=== PATIENT | female | born 1990 | race Caucasian/White ===

== ENCOUNTER 2017-08-18 15:58 | Inpatient (IN) | payer OTHER ==
[2017-08-18] MEDS ORDERED: OLIVE OIL 118 ML BTL MISC PRN (16:18)
[2017-08-18] MEDS ORDERED: OXYTOCIN 20 UNIT in LR 1,000 ML IV PRN (16:18)
[2017-08-18] MEDS ORDERED: EPSOM SALT 454 GM TP PRN (16:18)
[2017-08-18] MEDS ORDERED: TERBUTALINE SULFATE 1 MG/ML VIAL IV PRN (16:18)
[2017-08-18 17:49] LABS: % IMMATURE GRANULYOCYTES 0.5 % (0.0-1.1); ABSOLUTE IMMATURE GRANULOCYTES 0.04 10^3/uL (0.00-0.10); ADD DIFF? NO; ADD MORPH? NO; ADD SCAN? YES; ATYPICAL LYMPHOCYTE FLAG 0 (0-99); FRAGMENT RBC FLAG 0 (0-99); HEMATOCRIT 36.6 % (38.0-47.0); HEMOGLOBIN 12.9 g/dL (12.6-16.3); LEFT SHIFT FLG 0 (0-99); LIPEMIA HEMOLYSIS FLAG 90 (0-99); MEAN CELL HEMOGLOBIN 31.9 pg (27.9-34.1); MEAN CELL HEMOGLOBIN CONCENTR. 35.2 g/dL (32.4-36.7); MEAN CELL VOLUME 90.6 fL (81.5-99.8); MEAN PLATELET VOLUME 11.5 fL (8.7-11.7); PLATELET COUNT 224 10^3/uL (150-400); RED BLOOD CELL COUNT 4.04 10^6/uL (4.18-5.33); RED CELL DISTRIBUTION WIDTH 12.3 % (11.5-15.2)
[2017-08-18 17:50] LABS: PLATELET CLUMPS FLAG 300 (0-99)
[2017-08-18 18:12] LABS: SCAN NEGATIVE
[2017-08-18] MEDS ORDERED: OLIVE OIL 118 ML BTL ONE (18:21)
[2017-08-18] MEDS ORDERED: AMMONIA AROMATIC 1 EACH AMP IH ONE (18:21)
[2017-08-18] MEDS ORDERED: LIDOCAINE 1% 300 MG/30 ML SDV ONE (18:21)
[2017-08-18] MEDS ORDERED: OXYTOCIN 10 UNIT/ML VIAL ONE (18:22)
[2017-08-18] MEDS ORDERED: TERBUTALINE SULFATE 1 MG/ML VIAL ONE (18:22)
[2017-08-18] MEDS ORDERED: MISOPROSTOL 200 MCG TAB ONE (18:22)
[2017-08-18] MEDS ORDERED: DINOPROSTONE 10 MG VAG SUPP VG ONE (19:05)
--- NOTE | 2017-08-18 20:27 | GHP ---
[f rep st] HISTORY AND PHYSICAL DATE OF ADMISSION: 08/18/2017 HISTORY OF PRESENT ILLNESS: 26-year-old G1, P0, at 38-6wks by LMP consistent with 10 week ultrasound, presents to Labor and Delivery for IOL 2/2 IUGR with abnormal Dopplers (greater than 90th percent). Patient denies any regular contractions, leaking of fluid, vaginal bleeding. She reports regular movements. PAST MEDICAL HISTORY: +migraines. PAST SURGICAL HISTORY: Denies any surgical history. SOCIAL HISTORY: Denies any tobacco, alcohol or drug use. GYNECOLOGICAL HISTORY: Denies any history of abnormal pap smears or procedures on her cervix. Denies any history of STDs. OBSTETRICAL HISTORY: G1, regular care, started @ 7wks, IUGR. LABS: B Neg, ABS negative. HIV nonreactive. RPR nonreactive. Hepatitis B surface antigen nonreactive, PAP NIL, gonorrhea/chlamydia negative. MEDICATIONS: vitamin. ALLERGIES: No known drug allergies. REVIEW OF SYSTEMS: 10-point review of systems was reviewed and all are negative except pertinent information which is disclosed in the HPI. GENERAL: She denies any generalized fatigue, reports feeling overall well. HEENT: Denies any headache, visual changes or sore throat. CARDIOVASCULAR: Denies any chest pain or palpitations. PULMONARY: Denies cough or shortness of breath. GI: Denies any nausea, vomiting, diarrhea or constipation. : Denies any dysuria, vaginal bleeding, vaginal discharge. MUSCULOSKELETAL: Denies any edema in the lower extremities. SKIN: Denies any rashes or lesions. NEUROLOGICAL: Denies any numbness, tingling or loss of consciousness. PSYCH: Denies any depression or anxiety. PHYSICAL EXAMINATION: GENERAL: Alert and oriented x3. HEENT: Normocephalic, atraumatic. NECK: Supple. HEART: Regular rate and rhythm. No murmurs noted. LUNGS: Clear to auscultate bilaterally. No wheezing or rhonchi noted. ABDOMEN: Gravid, soft and nontender. PELVIC: SVE closed/thick/high. EXTREMITIES: Negative for edema, negative Dennis's sign. NEUROLOGICAL: Grossly normal. ASSESSMENT: Category 1 heart rate tracing, vertex presentation. TOCO: No contractions noted. ASSESSMENT: 1. 26-year-old at 38-6wks by LMP c/w 10wk US. 2. GBS negative. 3. IUGR with abnormal Dopplers. 4. Category 1 heart rate tracing. PLAN: 1. Admit to Labor and Delivery. 2. IV access. 3. IOL with cervidil. 4. Continuous FHR monitoring 2/2 IUGR with abnormal Dopplers. 5. Reassess p.r.n. 6. Anticipate . /[id number]/MODL MTDD
[2017-08-18] MEDS: LR 1,000 ML IV PRN (23:04)
[2017-08-19] MEDS: LR 1,000 ML IV PRN ×2 (04:17→05:42)
[2017-08-19] MEDS ORDERED: fentaNYL 2MCG/ML/BUP 0.1% RTU 100 ML BAG EP ONE (05:42)
[2017-08-19] MEDS ORDERED: fentaNYL 100 MCG/2 ML INJ ONE ×2 (05:43→08:34)
[2017-08-19] MEDS ORDERED: PHENYLEPHRINE HCL 100 MCG/ML SYR ONE ×2 (05:43→08:44)
[2017-08-19] MEDS ORDERED: BUPIVACAINE 0.25% 30 ML SDV ONE (05:43)
--- NOTE | 2017-08-19 06:46 | PREANESOB ---
Obstetric Pre-Anesthesia Info - General Info Proposed Procedure: Labor and delivery. : 1 Para: 0 WBD: 39 - Info Status: Full Term Monitors: External FHR Baseline (bpm): 120 FHR Pattern: Reassuring - Labor Status Cervical Dilation per last OB SVE: 3 Indications for Labor Analgesia: Pain Control (IUGR.) Labor Epidural: Proposed Anesthesia ROS: General anesthesia for breast surgery and T&A. Allergies/Adverse Reactions: Allergy/AdvReac Type Severity Reaction Status Date / Time No Known Allergies Allergy Unverified 08/18/17 16:17 Home Medications: Medication Instructions Recorded 1 tab 08/18/17 Visit Medications: Generic Name Dose Route Start Last Admin Trade Name Freq PRN Reason Stop Dose Admin Lactated Ringer's 1,000 mls @ 0 mls/hr 08/18/17 16:18 08/19/17 05:42 Lr IV 02/14/18 16:17 1,000 mls PRN PRN Administration SEE PROTOCOL CONDITIONS Protocol Per Protocol Oxytocin 20 unit/ Lactated 1,002 mls @ 150 mls/hr 08/18/17 16:18 Ringer's IV PRN PRN Post- bleeding Ibuprofen 600 mg 08/18/17 16:18 Motrin PO 02/14/18 16:17 Q6HRS PRN post , inflammation Magnesium Sulfate 454 gm 08/18/17 16:18 Epsom Salt TP 02/14/18 16:17 Q1H PRN perineal discomfort Lorado Oil 118 ml 08/18/17 16:18 Sweet Oil MISC 02/14/18 16:17 ONCE PRN perineal massage Terbutaline Sulfate 0.25 mg 08/18/17 16:18 Brethine IV 02/14/18 16:17 ONCE PRN Tachysystole Discontinued Medications Generic Name Dose Route Start Last Admin Trade Name Freq PRN Reason Stop Dose Admin Ammonia (Aromatic Spirit) Confirm 08/18/17 18:21 Ammonia Aromatic Administered 08/18/17 18:22 Dose 1 each IH .STK-MED ONE Bupivacaine HCl Confirm 08/19/17 05:43 Sensorcaine 0.25% Sdv Administered 08/19/17 05:44 Dose 30 ml .ROUTE .STK-MED ONE Dinoprostone 10 mg 08/18/17 19:05 08/18/17 19:23 Cervidil VG 08/18/17 19:06 10 mg ONCE ONE Administration Ephedrine Sulfate Confirm 08/18/17 18:21 Ephedrine Sulfate Administered 08/18/17 18:22 Dose 50 mg .ROUTE .STK-MED ONE Fentanyl Confirm 08/19/17 05:43 Sublimaze Administered 08/19/17 05:44 Dose 100 mcg .ROUTE .STK-MED ONE Fentanyl/Bupivacaine HCl Confirm 08/19/17 05:42 Fentanyl/Bupivacaine/Ns 2 Mcg/Ml 0.1% (Premix Administered 08/19/17 05:43 Dose 100 ml EP .STK-MED ONE Lidocaine HCl Confirm 08/18/17 18:21 Lidocaine Hcl 1% Administered 08/18/17 18:22 Dose 300 mg .ROUTE .STK-MED ONE Misoprostol Confirm 08/18/17 18:22 Cytotec Administered 08/18/17 18:23 Dose 800 mcg .ROUTE .STK-MED ONE Lorado Oil Confirm 08/18/17 18:21 Sweet Oil Administered 08/18/17 18:22 Dose 118 ml .ROUTE .STK-MED ONE Oxytocin Confirm 08/18/17 18:22 Pitocin Administered 08/18/17 18:23 Dose 40 unit .ROUTE .STK-MED ONE Phenylephrine HCl Confirm 08/19/17 05:43 Neosynephrine Administered 08/19/17 05:44 Dose 1,000 mcg .ROUTE .STK-MED ONE Terbutaline Sulfate Confirm 08/18/17 18:22 Brethine Administered 08/18/17 18:23 Dose 1 mg .ROUTE .STK-MED ONE - Anesthesia History Response to Local Anesthetics: Normal Anesthesia & Operative History: No Prior Problems Family Anesthesia History: Negative - Social History Substance Use/Abuse: Denies - Focused Exam Blood Pressure: 146/78 Heart Rate: 61 Height/Weight (Nursing): Height 170.18 cm Weight 72.121 kg Physical Exam: Within normal limits. ASA Status: II Labs: 08/18/17 17:15 Patient ABO/Rh B NEGATIVE 08/18/17 17:15 - Plan Anesthetic Plan: RANDY Consent Signed and on Chart: Yes Patient/Guardian Understands and Agrees to Plan: Yes Urgent/Emergent Case: Ibis chan completed preop but documented later for safe timely pt care
[2017-08-19] MEDS ORDERED: PHENYLEPHRINE HCL 100 MCG/ML SYR IVP PRN ×2 (06:47→09:50)
[2017-08-19] MEDS ORDERED: ONDANSETRON 4 MG/2 ML VIAL IVP PRN ×2 (06:47→09:50)
--- NOTE | 2017-08-19 06:47 | POSTANESTH ---
Post Anesthetic Evaluation Cardiovascular Status: Normal, Stable, Similar to Pre-Op Cond Respiratory Status: Normal, Stable, Similar to Pre-op Cond. Level of Consciousness/Mental Status: Can Participate in Eval, Alert and Oriented Pain Control: Adequate, Prn Tx Ordered Nausea/Vomiting Control: Adequate, Prn Tx Ordered Complications Possibly Related to Anesthesia: None Noted
[2017-08-19] MEDS ORDERED: LR 500 ML IV SCH (07:00)
[2017-08-19] MEDS ORDERED: fentaNYL 2MCG/ML/BUP 0.1% RTU 100 ML EP SCH (07:00)
--- NOTE | 2017-08-19 07:28 | SOAPPROG ---
SOAP Progress Note Assessment/Plan: Assessment: [id number] with IUP@ 40-0wks IUGR with abnormal dopplers GBS Neg Cat 2 FHR tracing Plan: consulted with Linda Cross MD continue to monitor, FSE placed counseled pt on c/s reassess PRN 08/19/17 07:25 Subjective: pt doing well, comfortable with RANDY; denies any pain. Objective: Vital Signs Temp Pulse Resp BP Pulse Ox 61 146/78 H 08/19/17 06:47 08/19/17 06:47 Laboratory Results 08/18/17 17:15 VSS FHR 130 +variable decels, +prolong decels ctxs q 3-4 min (TOCO) SVE: /-1, FSE applied SROM 0515- clear fluid ICD10 Worksheet Patient Problems: Problems Problem Status Onset IUGR (intrauterine growth restriction) affecting care of mother Acute - ICD10 Problem Qualifiers (1) IUGR (intrauterine growth restriction) affecting care of mother Qualifiers: Fetus number: single or unspecified fetus Trimester: third trimester Qualified Code(s): O36.5930 - Maternal care for other known or suspected poor growth, third trimester, not applicable or unspecified
[2017-08-19] MEDS ORDERED: CEFAZOLIN 2 GM/DEXTROSE/100 ML BAG IV ONE (07:55)
--- NOTE | 2017-08-19 08:00 | OBPROG ---
Labor Progress Note Assessment/Plan: Assessment: 26 yo G1 WF @ 39.0 weeks with IOL for IUGR and elevated umbilical artery dopplers. Deep heart rate decelerations over past 1hr. heart rate otherwise has good variability and returns to a baseline of 130. Plan: I discussed delivery modes and my concern for intolerance of labor. After discussing risks, benefits and alternatives, Danielle has given her written and verbal consent to proceed with delivery. 08/19/17 07:56 Subjective/Intrapartum Course: Patient is resting on her right side comfortably s/p epidural 08/19/17 08:00 Objective: 08/18/17 17:15 Patient ABO/Rh B NEGATIVE 08/18/17 17:15 Temp Pulse Resp BP Pulse Ox 61 146/78 H 08/19/17 06:47 08/19/17 06:47 CE: 5cm/100/+1, clear amniotic fluid noted - SVE Dilation (cm): 5 Effacement (%): 100 Station: +1 Membranes: SROM Amniotic Fluid Color: Clear - Contraction Pattern Assessment Current Contraction Pattern: Regular Oxytocin Orders Assessment - Pre-Induction/Augmentation Assessment Gestational Age: 38 week(s) and 6 day(s) ICD10 Worksheet Patient Problems: Problems Problem Status Onset IUGR (intrauterine growth restriction) affecting care of mother Acute
[2017-08-19] MEDS ORDERED: LR 500 ML IV ONE (08:01)
[2017-08-19] MEDS ORDERED: ceFAZolin 2 GM/DEXTROSE 100 ML IV ONE (08:01)
[2017-08-19] MEDS ORDERED: LR 1,000 ML IV SCH (08:30)
[2017-08-19] MEDS ORDERED: OXYTOCIN 100 UNITS/10 ML VIAL ONE (08:59)
[2017-08-19] MEDS ORDERED: fentaNYL 100 MCG/2 ML INJ IVP PRN (09:50)
[2017-08-19] MEDS ORDERED: MEPERIDINE 25 MG/ML SYR IVP PRN (09:50)
[2017-08-19] MEDS ORDERED: NALOXONE HCL 0.4 MG/ML INJ IVP PRN ×2 (09:50)
--- NOTE | 2017-08-19 09:55 | PDANEPAE ---
ANE Past Medical History - Cardiovascular History Hx Hypertension: No Hx Arrhythmias: No Hx Chest Pain: No Hx Coronary Artery / Peripheral Vascular Disease: No Hx CHF / Valvular Disease: No Hx Palpitations: No - Pulmonary History Hx COPD: No Hx Asthma/Reactive Airway Disease: No Hx Recent Upper Respiratory Infection: No Hx Oxygen in Use at Home: No Hx Sleep Apnea: No ANE Review of Systems Review of Systems: - Exercise capacity METS (RN): 4 METS ANE Patient History - Allergies Allergies/Adverse Reactions: No Known Allergies Allergy (Unverified 08/18/17 16:17) - Home Medications Home Medications: 1 tab 08/18/17 [Last Taken 08/17/17] - Anes Hx Anes Hx: no prior problems - Smoking Hx Smoking Status: Never smoked ANE Labs/Vital Signs - Labs Result Diagrams: 08/18/17 17:15 - Vital Signs Blood Pressure: 146/78 Heart Rate: 61 Height: 170.18 cm Weight: 72.121 kg ANE Physical Exam - Airway Neck exam: FROM Mallampati Score: Class 2 Mouth exam: normal dental/mouth exam - Pulmonary Pulmonary: no respiratory distress - Cardiovascular Cardiovascular: regular rate and rhythym - ASA Status ASA Status: II, E ANE Anesthesia Plan Anesthesia Plan: epidural
--- NOTE | 2017-08-19 09:56 | POSTANESTH ---
Post Anesthetic Evaluation Cardiovascular Status: Other, See Comment Respiratory Status: Normal, Stable Level of Consciousness/Mental Status: Can Participate in Eval Pain Control: Adequate, Prn Tx Ordered Nausea/Vomiting Control: Adequate, Prn Tx Ordered Complications Possibly Related to Anesthesia: None Noted (elevated BP. pt. w/ extreme shivering most likely causing falsely elevated BP. will reevaluate once shivering subsides.)
[2017-08-19] MEDS ORDERED: KETOROLAC 30 MG/1 ML SDV ONE (12:01)
[2017-08-19] MEDS ORDERED: KETOROLAC 30 MG/1 ML SDV IVP PRN (14:44)
[2017-08-19] MEDS ORDERED: IBUPROFEN 600 MG TAB PO PRN (14:44)
[2017-08-19] MEDS ORDERED: OXYCODONE/APAP 5/325 TAB PO PRN (14:44)
[2017-08-19] MEDS: HYDROCODONE/APAP 5/325 TAB PO PRN ×3 (15:37→23:26)
--- NOTE | 2017-08-19 17:37 | POSTOPPROG ---
Post Op Note Date of Operation: 08/19/17 Surgeon: Phan Cross Anesthesia: Epidural, Spinal Pre-op Diagnosis: IUGR, intolerance of labor induction Post-op Diagnosis: Same Indication: 26 yo G1 WF @ 39 weeks with IOL for IUGR, with late decels Procedure: Primary Delivery Findings: Viable Male , Normal Uterus/Tubes/Ovaries Inf/Abcess present in the surg proc area at time of surgery?: No Depth: Organ Space EBL: 500-1000 Total fluids administered: 1500 Complications: None
--- NOTE | 2017-08-19 18:09 | SUROPNOTE ---
[facility] Operative Report - Surgery OPERATIVE REPORT DATE OF OPERATION: 08/19/2017 SURGEON: Dewey Cross MD NUCLEAR REACTOR TECHNICIAN: FRANKLIN Sebastian ANESTHESIA: Epidual ANESTHESIOLOGIST: Narendra Triana DO PREOPERATIVE DIAGNOSIS: IOL for IUGR, elevated dopplers, intolerance to labor POSTOPERATIVE DIAGNOSIS: Same PROCEDURE PERFORMED: Primary Delivery FINDINGS: Viable male , Apgars 8/9, 2476g SPECIMENS: None EBL: 800 mL INDICATIONS: 26 yo WF G1 @ 39 weeks admitted on 08/18 for IOL for IUGR/abnormal uterine artery dopplers. Cervidil given for cervical ripening overnight. Repetative heart rate decelerations were noted starting after 6AM. Cervical exam was 4-5 cm, cervidil removed and resuscitation measures were performed. Despite resuscitative measures recurrent deep late decelerations persisted. delivery was offered for safe fast delivery of intolerance of labor. DESCRIPTION OF PROCEDURE: After appropriate consent was obtained patient was taken to OR. Epidural anesthesia was redosed and found to be adequate. 2 grams Cefzol given IV. Patient was prepped and draped according to usual sterile fashion. Time out was performed. A Pfannenstiel skin incision was performed with scalpel and subcutaneous tissue was incised down to rectus abdominis fascia. Fascia was nicked in midline and incision extended bilaterally with curved Causey scissors. Rectus muscles were incised off inferior and superior fascial segments and then in midline. Peritoneal cavity was entered bluntly. Bladder blade was placed to retract bladder from lower uterine segment. Bladder flap was created with Metzenbaum scissors and pick-ups. Bladder blade replaced to reflect bladder flap. Transverse lower uterine incision was made with scalpel. was delivered vertex through hysterotomy. Shoulders and body also delivered without difficulty. Cord was clamped and cut and was handed to resuscitation team. Cord blood was obtained. Placenta was manually extracted from intrauterine cavity and cavity was curetted with dry lap sponge after uterus was exteriorized. Hysterotomy was reapproximated with two 0 vicryl stitches; the first running and locking and the second a running, imbricating stitch. Gutters were cleared of debris and irrigated with warm saline. Uterus was placed back into anatomic position. Thorough inspection of pelvis and peritoneal cavity revealed normal tubes and ovaries and no additional bleeding from hysterotomy or other sites. Good hemostasis noted. Fascial incision was reapproximated with a single running 0-vicryl suture. Skin was closed with a subcuticular 4-0 monocryl stitch, steri-strips and bandaged appropriately. At the end of procedure sponge, lap and needle count was correct x 2. Patient tolerated procedure well and she was taken to PACU awake and in stable condition.
[2017-08-19] MEDS: KETOROLAC 30 MG/1 ML SDV IVP PRN (18:16)
[2017-08-19 18:21] LABS: HEMATOCRIT 33.3 % (38.0-47.0)
[2017-08-20] MEDS: HYDROCODONE/APAP 5/325 TAB PO PRN ×5 (04:12→20:59)
[2017-08-20] MEDS: KETOROLAC 30 MG/1 ML SDV IVP PRN (06:00)
[2017-08-20] MEDS: PRENATAL VIT 1 EACH TAB PO SCH (08:06)
[2017-08-20] MEDS ORDERED: PRENATAL PO SCH (09:00)
--- NOTE | 2017-08-20 11:29 | SOAPPROG ---
SOAP Progress Note Assessment/Plan: Assessment: POD #1 s/p C/S performed under existing lumbar epidural. Epidural morphine administered for extended post op pain control. Pt doing well. Plan: continue current medical mgmt 08/20/17 11:27 Subjective: pt denies N/V, pruritus, back pain, motor/sensory deficits. admits pain difficult to control throughout the night, improvement this morning. Objective: Vital Signs Temp Pulse Resp BP Pulse Ox 36.4 C 72 16 109/75 96 08/20/17 08:00 08/20/17 08:00 08/20/17 08:00 08/20/17 08:00 08/20/17 08:00 Laboratory Results 08/20/17 06:05 08/19/17 08/20/17 08/21/17 05:59 05:59 05:59 Intake Total 7500 Output Total 4800 600 Balance 2700 -600 Physical Exam - Physical Exam General Appearance: WD/WN, alert, no apparent distress Neuro/Psych: no motor/sensory deficits ICD10 Worksheet Patient Problems: Problems Problem Status Onset IUGR (intrauterine growth restriction) affecting care of mother Acute
[2017-08-20] MEDS ORDERED: LACTULOSE 20 GM/30 ML UDCUP PO PRN (11:45)
[2017-08-20] MEDS ORDERED: BISACODYL 10 MG SUPP PR PRN (11:45)
[2017-08-20] MEDS ORDERED: MAGNESIUM HYDROXIDE 30 ML UDCUP PO PRN (11:45)
[2017-08-20] MEDS ORDERED: POLYETHYLENE GLYCOL 3350 17 GM PKT PO PRN (11:45)
--- NOTE | 2017-08-20 11:58 | OBPP ---
Progress Note Assessment/Plan: Assessment: 1) s/p PCS secondary to intolerance to labor POD # 1 - pt is stable 2) Anemia - pt is asymptomatic 3) Rh negative - Rhogam eval Plan: Continue routine post-op care Encourage ambulation Ayoub just removed, will monitor output Encourage ambulation Pt may shower Plan for d/c home in 48 hours 08/20/17 11:47 Subjective/ Course: 08/20/17 11:58 Pt seen and examined. Doing well with no complaints. Pain is well controlled. Pt is OOB, nilsa regular diet, ayoub just removed, passing flatus. Denies any f/c/ n/v/CP or SOB. Mod lochia. BF with some difficulty-baby boy is sleepy. Baby boy in NICU with low blood sugars. Objective: 08/20/17 06:05 Patient ABO/Rh B NEGATIVE 08/18/17 17:15 Temp Pulse Resp BP Pulse Ox 36.4 C 72 16 109/75 96 08/20/17 08:00 08/20/17 08:00 08/20/17 08:00 08/20/17 08:00 08/20/17 08:00 Uterine Position/Fundal Height: Umbilicus -2 Uterine Tone: Firm Physical Exam - Physical Exam Respiratory: lungs clear, normal breath sounds Cardiac/Chest: regular rate, rhythm, edema Abdomen: normal bowel sounds, non-tender, soft, flatus (+), incision (C/D/I with steri strips) Extremities: non-tender, normal inspection Skin: normal color, warm/dry Neuro/Psych: alert, normal mood/affect, oriented x 3
[2017-08-20] MEDS: IBUPROFEN 600 MG TAB PO PRN ×2 (12:59→18:47)
[2017-08-20] MEDS: SENNOSIDES/DOCUSATE SODIUM TAB PO SCH (20:59)
[2017-08-21] MEDS: IBUPROFEN 600 MG TAB PO PRN ×4 (01:03→18:54)
[2017-08-21] MEDS: HYDROCODONE/APAP 5/325 TAB PO PRN ×6 (01:04→21:03)
[2017-08-21] MEDS: SENNOSIDES/DOCUSATE SODIUM TAB PO SCH ×2 (09:08→21:07)
[2017-08-21] MEDS: PRENATAL VIT 1 EACH TAB PO SCH (09:08)
--- NOTE | 2017-08-21 18:58 | OBPP ---
Progress Note Assessment/Plan: Assessment: 26 yo G1 WF @ 39.0 weeks with IOL for IUGR and elevated umbilical artery dopplers. Deep heart rate decelerations over past 1hr. heart rate otherwise has good variability and returns to a baseline of 130. Plan: I discussed delivery modes and my concern for intolerance of labor. After discussing risks, benefits and alternatives, Danielle has given her written and verbal consent to proceed with delivery. 08/19/17 07:56 08/21/17 18:54 Assessment/Plan: 26 yo POD#2 s/p 1CD for intolerance to labor. Patient is doing well overall. 1) Continue routine post-op care. Advance diet and activity. Patient will likely be DC'd home tomorrow and may board in hospital if remains in NICU (hypoglycemia). 2) Anemia - Continue Ferrous Sulfate. Patient is asymptomatic. 3) Rh negative - Baby blood type is negative. Subjective/ Course: 08/20/17 11:58 Pt seen and examined. Doing well with no complaints. Pain is well controlled. Pt is OOB, nilsa regular diet, ayoub just removed, passing flatus. Denies any f/c/ n/v/CP or SOB. Mod lochia. BF with some difficulty-baby boy is sleepy. Baby boy in NICU with low blood sugars. 08/21/17 18:58 Danielle reports minimal lochia. Pain is well controlled with PO meds. She is ambulating and passing flatus. She is voiding without difficulty. She is . Infant remains in NICU for management of hypoglycemia. Objective: 08/20/17 06:05 Patient ABO/Rh B NEGATIVE 08/18/17 17:15 Temp Pulse Resp BP Pulse Ox 36.4 C 69 16 126/85 H 98 08/21/17 08:00 08/21/17 08:00 08/21/17 08:00 08/21/17 08:00 08/21/17 08:00 General: AAO x3 Lungs: Clear in all calderon Heart: RRR, no murmurs, rubs or gallops Abdomen: soft, appropriately tender, incision remains clean/dry/intact, FF and below umbilicus Extremities: no swelling or tenderness Uterine Position/Fundal Height: Umbilicus -2 Uterine Tone: Firm
[2017-08-22] MEDS: IBUPROFEN 600 MG TAB PO PRN ×4 (02:02→22:55)
[2017-08-22] MEDS: HYDROCODONE/APAP 5/325 TAB PO PRN ×5 (02:03→22:55)
[2017-08-22] MEDS: PRENATAL VIT 1 EACH TAB PO SCH (08:16)
[2017-08-22] MEDS: SENNOSIDES/DOCUSATE SODIUM TAB PO SCH ×2 (08:16→22:56)
[2017-08-22] MEDS ORDERED: FLU VACC QS 2017-18 (3YR+)/PF 0.5 ML SYR (FLUARIX QUAD) IM ONE (09:56)
--- NOTE | 2017-08-22 10:14 | OBPP ---
Progress Note Assessment/Plan: Assessment: 1) s/p PCS secondary to intolerance to labor POD # 3 - pt is stable 2) Anemia - pt is asymptomatic 3) Rh negative - Rhogam eval Plan: Continue routine post-op care Encourage ambulation Plan for d/c home in am 08/23 when baby boy is discharged 08/22/17 10:11 Subjective/ Course: 08/20/17 11:58 Pt seen and examined. Doing well with no complaints. Pain is well controlled. Pt is OOB, nilsa regular diet, ayoub just removed, passing flatus. Denies any f/c/ n/v/CP or SOB. Mod lochia. BF with some difficulty-baby boy is sleepy. Baby boy in NICU with low blood sugars. 08/21/17 18:58 Danielle reports minimal lochia. Pain is well controlled with PO meds. She is ambulating and passing flatus. She is voiding without difficulty. She is . Infant remains in NICU for management of hypoglycemia. 08/22/17 10:11 Pt seen and examined. Doing well with no complaints. Pain is well controlled with po meds. Pt is OOB, nilsa reg diet, voiding and passing flatus. Denies any f/ c/n/v/CP or SOB. BM x 2. Mild lochia. Pumping well, baby boy is in NICU, but will be discharged in am. Objective: 08/20/17 06:05 Patient ABO/Rh B NEGATIVE 08/18/17 17:15 Temp Pulse Resp BP Pulse Ox 36.9 C 69 17 110/78 93 08/22/17 08:00 08/22/17 08:00 08/22/17 08:00 08/22/17 08:00 08/22/17 08:00 Uterine Position/Fundal Height: Umbilicus -2 Uterine Tone: Firm Physical Exam - Physical Exam Respiratory: lungs clear, normal breath sounds Cardiac/Chest: regular rate, rhythm Abdomen: normal bowel sounds, non-tender, soft, flatus (+) Extremities: non-tender, normal inspection Skin: normal color, warm/dry Neuro/Psych: alert, normal mood/affect, oriented x 3
[2017-08-22 21:27] VITALS: PULSE 68; RESP 16
[2017-08-23] MEDS: IBUPROFEN 600 MG TAB PO PRN ×2 (05:24→11:35)
[2017-08-23] MEDS: HYDROCODONE/APAP 5/325 TAB PO PRN ×3 (05:24→11:35)
[2017-08-23] MEDS: PRENATAL VIT 1 EACH TAB PO SCH (09:18)
[2017-08-23] MEDS: SENNOSIDES/DOCUSATE SODIUM TAB PO SCH ×2 (09:18→11:40)
--- NOTE | 2017-08-23 10:51 | OBPP ---
Progress Note Assessment/Plan: Assessment: and pumping with assistance. nipples intact ff@u scant rubra lochia pain well managed incision approximated ss applied no ss of infections + void + gas + mobility Plan:Discharge to home with instructions fu 2. 4. 6 weeks, pain management, depression, contraception, incision care, pericare, , no driving x 2 weeks, only lifting the baby x 3-4 weeks, rest to border today 08/23/17 10:49 Subjective/ Course: 08/20/17 11:58 Pt seen and examined. Doing well with no complaints. Pain is well controlled. Pt is OOB, nilsa regular diet, ayoub just removed, passing flatus. Denies any f/c/ n/v/CP or SOB. Mod lochia. BF with some difficulty-baby boy is sleepy. Baby boy in NICU with low blood sugars. 08/21/17 18:58 Danielle reports minimal lochia. Pain is well controlled with PO meds. She is ambulating and passing flatus. She is voiding without difficulty. She is . Infant remains in NICU for management of hypoglycemia. 08/22/17 10:11 Pt seen and examined. Doing well with no complaints. Pain is well controlled with po meds. Pt is OOB, nilsa reg diet, voiding and passing flatus. Denies any f/ c/n/v/CP or SOB. BM x 2. Mild lochia. Pumping well, baby boy is in NICU, but will be discharged in am. 08/23/17 10:46 Doing well. Denies difficulties. Pain well managed. Able to move around the unit and room without difficulty. Vs wnl. + passing gas, + voiding. Having difficulty with boundaries and empowerment in taking care of the baby discussed assisting patient with the nurse taking care of the patient on board and will help the patient today. Objective: 08/20/17 06:05 Patient ABO/Rh B NEGATIVE 08/18/17 17:15 Temp Pulse Resp BP Pulse Ox 36.9 C 68 16 143/88 H 96 08/22/17 20:00 08/22/17 20:00 08/22/17 20:00 08/22/17 20:00 08/22/17 20:00 Uterine Position/Fundal Height: At Umbilicus Uterine Tone: Firm Physical Exam - Physical Exam General Appearance: WD/WN, alert, no apparent distress Respiratory: chest non-tender, lungs clear, normal breath sounds Cardiac/Chest: regular rate, rhythm Abdomen: normal bowel sounds, incision (we approximated no ss of infection) Extremities: normal range of motion, Dennis's sign (negative homens sign) DTR- Lower Extremities: Knee (R): 1+, Knee (L): 1+ (no clonus) Skin: normal color, warm/dry Neuro/Psych: no motor/sensory deficits, alert, normal mood/affect, oriented x 3
--- NOTE | 2017-08-23 10:55 | OBGCSDC ---
General Delivery Information - General Info : 1 Para: 1 Abortions: 0 L&D Analgesia/Anesthesia Type: Epidural, Spinal, Nitrous Admission Date: 08/18/17 Labs: Patient ABO/Rh B NEGATIVE 08/18/17 17:15 Hct 34.5 % (38.0-47.0) L 08/20/17 06:05 - Hospital Course Intrapartum: Patient is resting on her right side comfortably s/p epidural 08/19/17 08:00 : 08/20/17 11:58 Pt seen and examined. Doing well with no complaints. Pain is well controlled. Pt is OOB, nilsa regular diet, ayoub just removed, passing flatus. Denies any f/c/ n/v/CP or SOB. Mod lochia. BF with some difficulty-baby boy is sleepy. Baby boy in NICU with low blood sugars. 08/21/17 18:58 Danielle reports minimal lochia. Pain is well controlled with PO meds. She is ambulating and passing flatus. She is voiding without difficulty. She is . Infant remains in NICU for management of hypoglycemia. 08/22/17 10:11 Pt seen and examined. Doing well with no complaints. Pain is well controlled with po meds. Pt is OOB, nilsa reg diet, voiding and passing flatus. Denies any f/ c/n/v/CP or SOB. BM x 2. Mild lochia. Pumping well, baby boy is in NICU, but will be discharged in am. 08/23/17 10:46 Doing well. Denies difficulties. Pain well managed. Able to move around the unit and room without difficulty. Vs wnl. + passing gas, + voiding. Having difficulty with boundaries and empowerment in taking care of the baby discussed assisting patient with the nurse taking care of the patient on board and will help the patient today. Vaginal - Delivery Provider Delivery Physician/CNM: Yen Jones - Diagnosis Amniotic Fluid Color: Clear - Delivery Providers Surgeon: Phan Cross [place] [facility] [place] Delivery Date: 08/19/17 Delivery Time: 08:58 LIA: 08/26/17 Gestational Age: 39 week(s) and 4 day(s) Sex of Infant: Male [place] Weight (gm): 2476 g Score (1 Min): 9 Score (5 Min): 9
[2017-08-23 11:33] VITALS: BP 142/93; TEMP 98.6; O2SAT 98
== END 2017-08-23 12:53 | disposition home or self-care (01) | DRG 766 ==
LOC: FLD 15:58 → FOB 08-19 13:07
PROVIDERS: ADMIT Advanced Practice Midwife; ATTEND Advanced Practice Midwife
PROC: 0U7C7ZZ Dilation of Cervix, Via Natural or Artificial Opening (ICD-10-PCS; principal; 2017-08-19)
PROC: 10D00Z1 Extraction of Products of Conception, Low, Open Approach (ICD-10-PCS; principal; 2017-08-19)
DX: O36.5930 Maternal care for other known or suspected poor fetal growth, third trimester, not applicable or unspecified (principal); Z37.0 Single live birth; Z3A.36 36 weeks gestation of pregnancy; O76 Abnormality in fetal heart rate and rhythm complicating labor and delivery; Z23 Encounter for immunization
CPT/HCPCS: G0008; J0690; J1885; J2370; J2590; J3010; J3105